=== PATIENT | female | born 1955 | race Caucasian/White ===

== ENCOUNTER 2022-11-08 06:58 | Inpatient (IN) ==
--- NOTE | 2022-10-29 14:12 | EKG ---
[facility] Test Date: 2022-10-29 Pat Name: Kathy Rider Department: [facility] Room: Gender: Female Bobbin Winder Tender: : 1955 Requested By: Domenico Mathew Order Number: [id number] Reading MD: Celia Méndez Measurements Intervals [place] Rate: 98 P: 81 RI: 173 QRS: 85 QRSD: 85 T: 75 QT: 341 QTc: 436 Interpretive Statements Sinus rhythm LEFT ATRIAL ABNORMALITY CONSIDER RIGHT ATRIAL ABNORMALITY Borderline right axis deviation Nonspecific ST and T wave changes Abnormal ECG Compared to 05/14/22, rate has increased Electronically Signed On 10-29-2022 14:12:28 PST by Celia Méndez /store/[email or web address]/[id number]
[2022-10-29 15:20] LABS: Basophils # (Auto) 0.03 K/mcL (0.00-0.30); Basophils % (Auto) 0.3 % (0.0-2.0); Eosinophils # (Auto) 0.04 K/mcL (0.00-0.70); Eosinophils % (Auto) 0.4 % (0.0-7.0); Hematocrit 40.4 % (34.1-44.9); Hemoglobin 12.4 g/dL (11.2-15.7); Lymphocytes # (Auto) 1.71 K/mcL (1.50-4.80); Lymphocytes % (Auto) 15.8 % (15.5-49.0); Mean Cell Volume 95.3 fL (80.0-100.0); Mean Corpuscular HGB Conc 30.7 g/dL (31.0-36.0); Monocytes # (Auto) 1.03 K/mcL (0.10-0.90); Monocytes % (Auto) 9.5 % (1.0-12.0); Neutrophils % (Auto) 73.6 % (38.0-78.0); Platelet Count 240 K/mcL (140-440); RBC 4.24 M/mcL (3.59-5.38); Red Cell Distribution Width 12.6 % (11.5-14.5); WBC 10.8 K/mcL (4.5-11.0)
[2022-10-29 15:51] LABS: Blood Urea Nitrogen 7 mg/dL (8-23); Calcium 9.7 mg/dL (8.6-10.4); Carbon Dioxide 38 mmol/L (22-30); Chloride 90 mmol/L (96-108); Glomerular Filtration Rate 77; Glucose 79 mg/dL (70-105)
[~2022-11-08 06:58] MED LIST: ceFAZolin 2 GM in DEXTROSE 5% IN WATER 50 ML IV SCH
[2022-11-08] MEDS ORDERED: LIDOCAINE 2% URO-JET 10 ML JEL.PF.APP UR ONE (08:00)
[2022-11-08] MEDS ORDERED: IOVERSOL 20 ML VIAL IJ ONE (08:00)
[2022-11-08] MEDS ORDERED: PROPOFOL 200 MG/20 ML VIAL IV ONE (08:33)
[2022-11-08] MEDS ORDERED: LIDOCAINE HCL/PF 100 MG/5 ML SYRINGE IV ONE (08:33)
[2022-11-08] MEDS ORDERED: MIDAZOLAM 2 MG/2 ML VIAL ONE (08:33)
--- NOTE | 2022-11-08 09:02 | Operative Note ---
Brief Operative Note Date of procedure: 11/08/22 Pre-op diagnosis: Right ureteral obstruction secondary to metastatic bladder c ancer Post-op diagnosis: same Procedure: Cystoscopy, right ureteral stent removal, right retrograde pyelogram, and right ureteral stent replacement. Grafts/Implants: Yes (6 Kittitian by 22 cm right ureteral stent with no string) Anesthesia: GLMA Findings: Right ureteral stent exchanged without difficulty. No evidence of hydronephrosis. Anesthesia advised that patient's lung function is extremely poor. Complications: none Surgeon: Nir Camacho Estimated blood loss (cc): 5 Specimens Removed/Pathology: none sent Condition: stable Disposition: PACU Operative Note Operative Note: After obtaining informed consent for the patient, she was brought to the operating room was placed upon on the operating table. General anesthesia was provided. She was repositioned in a dorsolithotomy position was prepped and draped in usual sterile fashion. Attention was directed to the urethral meatus where a 21 Kittitian cystoscope was passed per urethra into the bladder. The bladder is inspected and seen to be free of tumors and stones. A right neural stent was seen emanating from the right ureteral orifice that had a few calcifications on it. The right ureteral stent was grasped using a flexible grasper and was removed from the bladder and ureter intact under fluoroscopic guidance. A 5 Kittitian open-end ureteral catheter was then passed through the right ureteral orifice and a right retrograde pyelogram was performed showing no evidence of hydronephrosis. There was evidence of ureteral narrowing. The open ureteral catheter was removed and a 0.38 Kittitian sensor wire was passed through the right ureteral orifice and under fluoroscopic guidance into the right upper pole. A 6 Kittitian by 22 cm right ureteral stent with no string was passed over the wire and under fluoroscopic guidance into the right renal pelvis. The wire was removed leaving a curl in the right renal pelvis and a curl within the bladder. The bladder was irrigated and drained. The cystoscope was removed. Lidocaine jelly was placed in the urethra and the bladder. The patient was returned to the spine position. She was awakened returned to the recovery room in stable condition.
[2022-11-08] MEDS ORDERED: fentaNYL 100 MCG/2 ML VIAL IV PRN (09:03)
[2022-11-08] MEDS ORDERED: IPRATROPIUM/ALBUTEROL 3 ML AMPUL.NEB NEB PRN ×2 (09:03→13:51)
--- NOTE | 2022-11-08 09:48 | Urology Progress Note ---
SUBJECTIVE Subjective Patient information: Note initiated : 11/08/22 at 9:46 am Service Date, if different from initiated Date: [] Patient: Kathy Rider 66 y/o F admitted on for Cystoscopy with Right Retrograde Pyelograms & . Chief Complaint: [] Constitutional Vitals: Vital Signs Temp Pulse Resp BP Pulse Ox O2 Del Method O2 Flow Rate 98.0 F 91 H 23 H 161/85 98 Nasal Cannula 2.5 11/08/22 09:40 11/08/22 09:40 11/08/22 09:40 11/08/22 09:40 11/08/22 09:40 11/08/22 09:40 11/08/22 09:40 Period Temp Pulse Resp BP Sys/Matos Pulse Ox O2 Del Method O2 Flow Rate Last 24 Hr 97.7 F-98.2 F 91-101 14-30 141-167/74-136 98-100 Nasal Cannula-Simple Mask 2.5-6 Intake and Output 11/07/22 11/08/22 11/08/22 19:59 03:59 11:59 Intake Total 1000 Balance 1000 Weight 49.895 kg Patient Weight 11/09/22 03:59 Weight 49.895 kg Intake & Output: Intake & Output 11/07/22 11/08/22 11/08/22 19:59 03:59 11:59 Intake Total 1000 Balance 1000 Weight 49.895 kg Intake: IV - Manual Only 1000 Other: Urine Odor Normal A/P Assessment and plan (1) Hypoxemia: Status: Acute (2) Hypoventilation: Status: Acute (3) S/P ureteral stent placement: Status: Acute Plan Postoperatively the patient CO2 on blood gas was 102.5. I spoke with the hospitalist service who agrees to admit her for observation and possible BiPAP. They will then further discuss her condition with the family to decide upon further treatment options. A review of her prior records from her ER visit indicates was quite high during that visit. She was difficult to ventilate during the procedure we did. Postoperatively she remains somnolent. I have also discussed this with the patient's family. Time Spent With Patient Time: Total time spent is greater than 50% in coordination of care (as documented) at patient's floor/unit and/or counseling patient:
--- NOTE | 2022-11-08 13:50 | Internal Med History&Physical ---
HPI History of Present Illness Patient information: Note initiated : 11/08/22 at 1:39 pm Service Date, if different from initiated Date: [] Patient: Kathy Rider a 66 y/o F admitted on 11/08/22 for Cystoscopy with Right Retrograde Pyelograms & . Chief Complaint: [] History of present illness: Ms. Rider is a 66 year old F Who underwent right ureteral stent replacement today. Patient has a history of metastatic bladder cancer with urinary obstruction and receives regular replacement of her stent. She also has history of COPD on 3 L at home. Today after surgery she was found to have a pH of 7.25 with a CO2 of 102 and altered. Per her children who recently been in town visiting her because she felt like she was dying, they stated that she is had increased oxygen needs up to 4 L at home. And that she seems to been a little more short of breath. She is also been much more drowsy over that time. Patient has a chronic cough but not particular change. She has chronic shortness of breath. She complains of headaches. She has recently been looking into hospice and supposed to meet with them tomorrow. She does take prednisone chronically for her lungs. Vital signs show mild tachycardia and hypertension. Patient transferred to the ICU on BiPAP. Review of Systems: Pertinent positives as above. Denies /fever/chills/nausea/vomiting/chest or abdominal pain/diarrhea. Remaining 10 point review of system reviewed negative PHYSICAL EXAM: General: Drowsy, No acute Distress Eyes/N/T: EOMI, no scleral icterus, PERRL, Head/Neck: neck supple, full ROM, normocephalic atraumatic CV: RRR, No murmurs, normal s1/s2 Pulm: decreased BS and mild wheezing b/l, no rhonchi/rales, Abd: soft, nontender, +BS x4 Ext: no clubbing/cyanosis/edema, nontender Neuro: follow commands Quite drowsy but will respond to questions alert, moves all extremities, CN 2-12 grossly intact, sensations intact b/l upper/lower Psychiatric: Skin: warm/dry, normal color PFSH PFSH All Active Problems UTI (urinary tract infection) (Chronic) Acute exacerbation of chronic obstructive airways disease (Chronic) Nausea & vomiting (Chronic) Metabolic acidosis (Chronic) Acute renal failure (Chronic) Hypoglycemia (Chronic) Hyperkalemia (Chronic) Renal failure (Chronic) Hydronephrosis (Chronic) Malnutrition of moderate degree (Chronic) CRISTIANA (acute kidney injury) (Chronic) Hypertension (Chronic) Respiratory failure (Chronic) Encephalopathy (Chronic) COPD (chronic obstructive pulmonary disease) (Chronic) Hyperphosphatemia (Chronic) Acute respiratory failure with hypoxemia (Chronic) Right lower lobe pneumonia (Chronic) Acute encephalopathy (Chronic) Depression (Chronic) Hydronephrosis (Acute) OAB (overactive bladder) (Acute) Cancer of bladder wall (Acute) Bilateral ureteral obstruction (Acute) S/P ureteral stent placement (Acute) Ureteral obstruction, right (Chronic) Acquired solitary kidney (Chronic) Viral syndrome (Acute) Pulmonary scarring (Chronic) Shortness of breath (Chronic) Mediastinal adenopathy (Chronic) GERD (gastroesophageal reflux disease) (Chronic) RUE weakness (Acute) Hyponatremia (Acute) Cough (Acute) Hematuria (Acute) Hydronephrosis of right kidney (Acute) Fatigue (Acute) Hypoxemia (Acute) Hypoventilation (Acute) Right flank pain (Acute) Medical History Acute encephalopathy Acute exacerbation of chronic obstructive airways disease Acute renal failure Acute respiratory failure with hypoxemia CRISTIANA (acute kidney injury) COPD (chronic obstructive pulmonary disease) Depression Encephalopathy GERD (gastroesophageal reflux disease) Hydronephrosis Bilateral Hyperkalemia Hyperphosphatemia Hypertension Hypoglycemia Hypoventilation Hypoxemia Malnutrition of moderate degree Mediastinal adenopathy Metabolic acidosis Nausea & vomiting Pulmonary scarring Renal failure Respiratory failure Right lower lobe pneumonia Shortness of breath UTI (urinary tract infection) Viral syndrome Surgical History History of section 10/24/1988, 11/06/1978 History of colonoscopy (06/16/14) History of cystoscopy (11/02/21) Rt ureteral stent History of surgery (07/21/20) Port a cath placement History of surgical procedure (~12/23/19) Bilateral nephrostomy tube placement 12/23/2019 - Left nephroureteral stent History of ureter stent 11/02/21, 06/22/21, 12/01/20, 08/25/20, 04/28/20, 01/07/20 History of wisdom tooth extraction Family History Father , 86 Cardiac disorder Hypertensive disorder Disorder of macula of retina Peripheral vascular disease Stented coronary artery Mother , 85 Disorder of macula of retina Depressive disorder Cerebrovascular accident Other Cancer Heart attack Social History household members: spouse lives independently: Yes marital status: education level: college occupational status: retired occupation: Nurse pets and animals: Yes pets and animals: cat(s) sexually active: No other: 2 children physical activity: other smoking status: Current every day smoker tobacco type: cigarettes per day: 2 pack-years: 40 alcohol intake frequency: a few times a week substance use type: does not use seatbelt use: always working smoke detector in home: Yes carbon monox detector in home: Yes MEDS/ALLERGIES Home Medications and Allergies Home Medications Medication Instructions Recorded Confirmed Type aripiprazole 2 mg tablet 2 mg PO QHS 01/05/20 11/08/22 History gabapentin 100 mg capsule 100 mg PO BID 01/05/20 11/08/22 History lorazepam 1 mg tablet 1 mg PO Q6H PRN Anxiety 01/05/20 11/08/22 History trazodone 50 mg tablet 150 mg PO HS 01/06/20 11/08/22 History acetaminophen 500 mg tablet 1,000 mg PO Q8H PRN Pain 11/23/20 11/08/22 History meloxicam 7.5 mg tablet 7.5 mg PO QDAY 11/23/20 11/08/22 History polyethylene glycol 3350 17 gram 17 g PO QDAY PRN Constipation 06/15/21 11/08/22 History oral powder packet (ClearLax) tramadol 50 mg tablet 50 mg PO Q6H PRN Pain 03/20/22 11/08/22 History tamsulosin 0.4 mg capsule (Flomax) 0.4 mg PO QHS 07/05/22 11/08/22 History venlafaxine 150 mg 150 mg PO BID 07/05/22 11/08/22 History capsule,extended release 24 hr solifenacin 10 mg tablet 10 mg PO QDAY #30 tabs 07/26/22 11/08/22 Rx ipratropium 0.5 mg-albuterol 3 mg 3 ml inhalation QID shortness of 08/08/22 11/08/22 Rx (2.5 mg base)/3 mL nebulization breath #360 mL soln albuterol sulfate 90 mcg/actuation 2 puff inhalation Q4 10/29/22 11/08/22 History aerosol inhaler (Ventolin HFA) fluticasone fur. 100 mcg-umeclid 1 ea inhalation QDAY 10/29/22 11/08/22 History 62.5 mcg-vilant 25 mcg inhalat.powder (Trelegy Ellipta) oxycodone 5 mg tablet 5 mg PO Q8H PRN Pain 10/29/22 11/08/22 History prednisone 10 mg tablet 10 mg PO QAM 10/29/22 11/08/22 History cefdinir 300 mg capsule 300 mg PO BID #10 caps 11/05/22 11/08/22 Rx venlafaxine 75 mg tablet,extended 75 mg PO DAILY 11/08/22 11/08/22 History release 24 hr Allergies Allergy/AdvReac Type Severity Reaction Status Date / Time No Known Drug Allergies Allergy Verified 11/08/22 07:12 EXAM Constitutional Vitals: Temp Pulse Resp BP Pulse Ox O2 Del Method O2 Flow Rate 98.2 F 90 32 H 163/89 97 Nasal Cannula 2 11/08/22 12:01 11/08/22 12:42 11/08/22 12:42 11/08/22 12:01 11/08/22 12:42 11/08/22 12:16 11/08/22 11:16 DATA Data Completed and Pending Labs: Labs from last 24 hours 11/08/22 09:31 POC pH 7.26 L POC pCO2 102.5 H* POC pO2 85 POC HCO3 45.6 H POC Total CO2 49.0 H* POC ABG Base Excess 19.0 H ABG Lactic Acid < 0.3 L Hgb O2 Saturation 93.0 L A/P Narrative A/P Narrative: A: *Acute on chronic hypoxic/hypercapnic respiratory failure: 2/2 copd and anesthesia for surgery -on bipap *AECOPD (3L O2@home), advanced: on chronic prednisone *metabolic alkalosis, likely chronic as compensatory mechanism *Metastatic bladder cancer: Chronic right ureteral stent, replaced (2/16) *Hematuria: Chronic 2/2 above *HTN: *CKD II: *Depression and anxiety: *Chronic pain: *Tobacco abuse: P: -bipap, f/u ABG -Corticosteroids -abhi and prn nebs, pulmicort -IS/Acapella when able, RT -cxr -check labs -monitor uop/i&o -monitor BP, prn IV -hold ryan for now d/t sedation -pt/ot -CM for placement needs, hospice eval -Smoking cessation counseling >3 minutes -ppx: SCD / ppi Time Spent With Patient Time: Total time spent is greater than 50% in coordination of care (as documented) at patient's floor/unit and/or counseling patient: Critical Care Time: Yes Total Critical Care Time: 70
[2022-11-08] MEDS ORDERED: POTASSIUM CHLORIDE 40 MEQ in DEXTROSE 5% IN WATER 500 ML IV PRN (13:51)
[2022-11-08] MEDS ORDERED: methylPREDNISolone SOD SUCC 125 MG/2 ML VIAL IV ONE (13:51)
[2022-11-08] MEDS ORDERED: LABETALOL 5 MG/ML ML IV PRN (13:51)
[2022-11-08] MEDS ORDERED: ACETAMINOPHEN 325 MG TABLET PO PRN (13:51)
[2022-11-08] MEDS ORDERED: MAGNESIUM SULFATE 2 GM/50 ML BAG IV PRN (13:51)
[2022-11-08] MEDS ORDERED: HYDROcodone/APAP 5/325MG TABLET PO PRN (13:51)
[2022-11-08] MEDS ORDERED: SENNOSIDES 1 TABLET PO PRN (13:51)
[2022-11-08] MEDS ORDERED: ONDANSETRON 4 MG/2 ML VIAL IV PRN (13:51)
[2022-11-08] MEDS ORDERED: POTASSIUM CHLORIDE 20 MEQ TABLET PO PRN ×2 (13:51)
[2022-11-08] MEDS ORDERED: POLYETHYLENE GLYCOL 3350 17 GM PACKET PO PRN (13:51)
[2022-11-08] MEDS ORDERED: LORazepam 1 MG TABLET PO PRN (14:03)
[2022-11-08] MEDS: 0.9 % SODIUM CHLORIDE 10 ML SYRINGE IV SCH ×4 (14:12→21:26)
--- NOTE | 2022-11-08 14:25 | XRay Report ---
CLINICAL INFORMATION: Dyspnea COMPARISON: 11/05/2022 TECHNIQUE: Portable FINDINGS: The heart size, mediastinum and pulmonary vessels are unremarkable. Right IJ Port-A-Cath in stable satisfactory position. COPD with scattered fibrosis in both lungs is similar previous exam-no new pulmonary abnormalities. The right costophrenic angle is blunted by a tiny chronic effusion or scar-stable IMPRESSION: Stable COPD Interpreted and Authenticated by: Serg Loera 11/08/22
[2022-11-08] MEDS ORDERED: traMADol 50 MG TABLET PO PRN (14:31)
[2022-11-08] MEDS ORDERED: LORazepam 2 MG/ML VIAL IV PRN (15:59)
[2022-11-08] MEDS ORDERED: morphine 2 MG/ML VIAL IV PRN (15:59)
[2022-11-08 16:20] LABS: Basophils # (Auto) 0.03 K/mcL (0.00-0.30); Basophils % (Auto) 0.4 % (0.0-2.0); Eosinophils # (Auto) 0.02 K/mcL (0.00-0.70); Eosinophils % (Auto) 0.3 % (0.0-7.0); Hematocrit 41.8 % (34.1-44.9); Hemoglobin 11.9 g/dL (11.2-15.7); Lymphocytes # (Auto) 1.69 K/mcL (1.50-4.80); Lymphocytes % (Auto) 23.8 % (15.5-49.0); Mean Cell Volume 100.2 fL (80.0-100.0); Mean Corpuscular HGB Conc 28.5 g/dL (31.0-36.0); Mean Platelet Volume 9.9 fL (8.8-12.5); Monocytes # (Auto) 0.78 K/mcL (0.10-0.90); Neutrophils % (Auto) 64.2 % (38.0-78.0); Platelet Count 182 K/mcL (140-440); RBC 4.17 M/mcL (3.59-5.38); Red Cell Distribution Width 12.7 % (11.5-14.5); WBC 7.1 K/mcL (4.5-11.0)
[2022-11-08 18:54] LABS: ALT/SGPT 13 U/L (<40); AST/SGOT 16 U/L (<32); Albumin 3.7 gm/dL (3.2-5.2); Albumin/Globulin Ratio 1.4 (1.0-2.3); Alkaline Phosphatase 68 U/L (39-117); Bilirubin,Direct < 0.2 mg/dL (0-0.3); Bilirubin,Total 0.2 mg/dL (0.1-1.0); Blood Urea Nitrogen 10 mg/dL (8-23); Calcium 9.1 mg/dL (8.6-10.4); Carbon Dioxide 45 mmol/L (22-30); Chloride 91 mmol/L (96-108); Globulin 2.6 gm/dL (2.2-3.7); Glomerular Filtration Rate 90; Glucose 224 mg/dL (70-105); Lactate Dehydrogenase 157 U/L (135-225); Phosphorous 2.2 mg/dL (2.5-4.5); Triglycerides 91 mg/dL (<150); Uric Acid 3.2 mg/dL (2.5-8.0)
[2022-11-08] MEDS: IPRATROPIUM/ALBUTEROL 3 ML AMPUL.NEB NEB SCH (19:04)
[2022-11-08] MEDS ORDERED: NICOTINE POLACRILEX 2 MG GUM CHEW/PARK PRN (19:04)
[2022-11-08] MEDS: BUDESONIDE 0.5 MG/2 ML AMPUL.NEB NEB SCH (19:05)
[2022-11-08] MEDS ORDERED: acetaZOLAMIDE SOD 500 MG VIAL IV ONE (19:08)
[2022-11-08] MEDS ORDERED: traZODone HCL 50 MG TABLET PO SCH (21:00)
[2022-11-08] MEDS ORDERED: TAMSULOSIN 0.4 MG CAPSULE PO SCH (21:00)
[2022-11-08] MEDS ORDERED: ARIPIPRAZOLE 5 MG TABLET PO SCH (21:00)
[2022-11-08] MEDS: DOCUSATE SODIUM 100 MG CAPSULE PO SCH (21:24)
[2022-11-08] MEDS: methylPREDNISolone SOD SUCC 40 MG/ML VIAL IV SCH (21:25)
[2022-11-09] MEDS: IPRATROPIUM/ALBUTEROL 3 ML AMPUL.NEB NEB SCH ×3 (01:39→11:40)
--- NOTE | 2022-11-09 04:55 | XRay Report ---
CLINICAL INFORMATION: Right retrograde pyelogram COMPARISON: None. FINDINGS: Right retrograde pyelogram was performed following by successful stent placement. Total fluoroscopy time 0.3 minutes. IMPRESSION: Successful placement right ureteral stent. Total fluoroscopy time 0.3 minutes. Interpreted and Authenticated by: Serg Loera 11/09/22
[2022-11-09] MEDS: methylPREDNISolone SOD SUCC 40 MG/ML VIAL IV SCH (06:05)
[2022-11-09] MEDS: 0.9 % SODIUM CHLORIDE 10 ML SYRINGE IV SCH ×2 (06:06→13:56)
[2022-11-09 06:45] LABS: ALT/SGPT 11 U/L (<40); AST/SGOT 12 U/L (<32); Albumin 3.4 gm/dL (3.2-5.2); Albumin/Globulin Ratio 1.4 (1.0-2.3); Alkaline Phosphatase 62 U/L (39-117); Bilirubin,Direct < 0.2 mg/dL (0-0.3); Bilirubin,Total 0.2 mg/dL (0.1-1.0); Blood Urea Nitrogen 14 mg/dL (8-23); Calcium 9.3 mg/dL (8.6-10.4); Carbon Dioxide 34 mmol/L (22-30); Chloride 95 mmol/L (96-108); Globulin 2.5 gm/dL (2.2-3.7); Glomerular Filtration Rate 77; Glucose 99 mg/dL (70-105); Lactate Dehydrogenase 160 U/L (135-225); Phosphorous 3.8 mg/dL (2.5-4.5); Triglycerides 76 mg/dL (<150); Uric Acid 3.3 mg/dL (2.5-8.0)
[2022-11-09] MEDS ORDERED: PANTOPRAZOLE 40 MG TABLET PO SCH (07:30)
[2022-11-09] MEDS: BUDESONIDE 0.5 MG/2 ML AMPUL.NEB NEB SCH (07:31)
--- NOTE | 2022-11-09 08:00 | Internal Med Progress Note ---
SUBJECTIVE Subjective Patient information: Note initiated : 11/09/22 at 7:58 am Service Date, if different from initiated Date: [] Patient: Kathy Rider a 66 y/o F admitted on 11/08/22 for Cystoscopy with Right Retrograde Pyelograms & . Chief Complaint: [] Interval history: History of present illness: Ms. Rider is a 66 year old F Who underwent right ureteral stent replacement today. Patient has a history of metastatic bladder cancer with urinary obstruction and receives regular replacement of her stent. She also has history of COPD on 3 L at home. Today after surgery she was found to have a pH of 7.25 with a CO2 of 102 and altered. Per her children who recently been in town visiting her because she felt like she was dying, they stated that she is had increased oxygen needs up to 4 L at home. And that she seems to been a little more short of breath. She is also been much more drowsy over that time. Patient has a chronic cough but not particular change. She has chronic shortness of breath. She complains of headaches. She has recently been looking into hospice and supposed to meet with them tomorrow. She does take prednisone chronically for her lungs. Vital signs show mild tachycardia and hypertension. Patient transferred to the ICU on BiPAP. 11/09 Patient on BiPAP overnight. Currently on nasal cannula alert and awake, family at bedside. Denies shortness of breath at rest. No coughing currently. Bicarb improved after Diamox last night. Review of Systems: denies headache/fever/chills/nausea/vomiting/chest or abdominal pain/cough/dyspnea/diarrhea. Otherwise see above. PHYSICAL EXAM: General: Awake, No acute Distress Eyes/N/T: EOMI, no scleral icterus, Head/Neck: neck supple, full ROM, CV: RRR, No murmurs, normal s1/s2 Pulm: decreased BS but better, no wheezing today, no rhonchi/rales, Abd: soft, nontender, +BS x4 Ext: no clubbing/cyanosis/edema, nontender Neuro: Alert and awake, moves all extremities, sensations intact b/l upper/lower Psychiatric: Skin: warm/dry, normal color Constitutional Vitals: Vital Signs Temp Pulse Resp BP Pulse Ox O2 Del Method O2 Flow Rate 98.4 F 95 H 34 H 109/75 94 BiPAP 4 11/09/22 04:00 11/09/22 07:36 11/09/22 07:36 11/09/22 04:00 11/09/22 07:36 11/09/22 07:36 11/08/22 15:15 Period Temp Pulse Resp BP Sys/Matos Pulse Ox O2 Del Method O2 Flow Rate Last 24 Hr 97.7 F-98.4 F 66-101 14-34 108-172/64-136 92-100 BiPAP-Simple Mask 2-6 Intake and Output 11/08/22 11/09/22 11/09/22 19:59 03:59 11:59 Intake Total 300 Output Total 850 425 Balance -850 -125 Weight 51.392 kg Intake & Output: Intake & Output 11/08/22 11/09/22 11/09/22 19:59 03:59 11:59 Intake Total 300 Output Total 850 425 Balance -850 -125 Weight 51.392 kg Intake: Oral 300 Output: Void Amount 850 425 Other: Urine Appearance Clear Urine Color Tea Colored Dark Yellow OBJ DATA Labs 11/08/22 14:19 11/09/22 05:18 Labs: Abnormal Lab Results 11/09/22 11/08/22 11/08/22 05:18 18:01 15:55 MCV MCHC POC pH 7.32 L POC pCO2 89.6 H* POC HCO3 45.6 H POC Total CO2 48.0 H* POC ABG Base Excess 19.0 H ABG Lactic Acid Hgb O2 Saturation Chloride 95 L 91 L Carbon Dioxide 34 H 45 H* Anion Gap 6.0 L 1.0 L Glucose 224 H Phosphorus 2.2 L 11/08/22 11/08/22 14:19 09:31 MCV 100.2 H MCHC 28.5 L POC pH 7.26 L POC pCO2 102.5 H* POC HCO3 45.6 H POC Total CO2 49.0 H* POC ABG Base Excess 19.0 H ABG Lactic Acid < 0.3 L Hgb O2 Saturation 93.0 L Chloride Carbon Dioxide Anion Gap Glucose Phosphorus Meds: Medications Acetaminophen (Acetaminophen 325 Mg Tablet) 650 mg PO Q6HP PRN; Protocol PRN Reason: Per Pain Protocol/Fever > 101 Last Admin: 11/08/22 14:12 Dose: 650 mg Hydrocodone Bitart/Acetaminophen (Hydrocodone/Apap 5/325mg Tablet) 1 tab PO Q4HP PRN PRN Reason: PAIN LEVEL 3-6 Last Admin: 11/08/22 22:13 Dose: 1 tab Albuterol/Ipratropium (Ipratropium/Albuterol 3 Ml Ampul.Neb) 3 ml NEB Q6HRT [facility] Last Admin: 11/09/22 07:31 Dose: 3 ml Albuterol/Ipratropium (Ipratropium/Albuterol 3 Ml Ampul.Neb) 3 ml NEB Q4HP PRN PRN Reason: Shortness Of Breath Budesonide (Budesonide 0.5 Mg/2 Ml Ampul.Neb) 0.5 mg NEB Q12 [facility] Last Admin: 11/09/22 07:31 Dose: 0.5 mg Docusate Sodium (Docusate Sodium 100 Mg Capsule) 100 mg PO BID [facility] Last Admin: 11/08/22 21:24 Dose: 100 mg Heparin Sodium (Porcine) (Heparin Flush 10 Units/Ml 5 Ml Syringe) 5 ml IV Q12 [facility] Last Admin: 11/08/22 21:24 Dose: 5 ml Potassium Chloride 40 meq/ (Dextrose) 520 mls @ 130 mls/hr IV UD PRN PRN Reason: Potassium < 3 Magnesium Sulfate (Magnesium Sulfate) 2 gm in 50 mls @ 50 mls/hr IV UD PRN PRN Reason: Magnesium </= 1.6 Labetalol HCl (Labetalol 5 Mg/Ml Ml) 0 mg IV Q2HP PRN PRN Reason: Hypertension Lorazepam (Lorazepam 1 Mg Tablet) 1 mg PO Q6HP PRN PRN Reason: ANXIETY/SEDATION Last Admin: 11/08/22 15:50 Dose: 1 mg Lorazepam (Lorazepam 2 Mg/Ml Vial) 0.5 mg IV Q4-6HP PRN PRN Reason: ANXIETY/SEDATION Last Admin: 11/08/22 22:01 Dose: 0.5 mg Methylprednisolone Sodium Succinate (Methylprednisolone Sod Succ 40 Mg/Ml Vial) 40 mg IV Q8 [facility] Last Admin: 11/09/22 06:05 Dose: 40 mg Morphine Sulfate (Morphine 2 Mg/Ml Vial) 1 - 4 mg IV Q3HP PRN; Protocol PRN Reason: Per Pain Protocol Nicotine Polacrilex (Nicotine Polacrilex 2 Mg Gum) 2 mg CHEW/PARK Q4HP PRN PRN Reason: Nicotine Cravings Ondansetron HCl (Ondansetron 4 Mg/2 Ml Vial) 4 mg IV Q4HP PRN PRN Reason: Nausea And Vomiting Pantoprazole Sodium (Pantoprazole 40 Mg Tablet) 40 mg PO QAMAC ABHI Solifenacin 10 Mg (Tablet) 1 dose PO DAILY [facility] Polyethylene Glycol (Polyethylene Glycol 3350 17 Gm Packet) 17 gm PO DAILYP PRN PRN Reason: Constipation Potassium Chloride (Potassium Chloride 20 Meq Tablet) 40 meq PO UD PRN PRN Reason: Potssium is 3-3.5 Potassium Chloride (Potassium Chloride 20 Meq Tablet) 40 meq PO UD PRN PRN Reason: Potassium < 3 Senna (Sennosides 1 Tablet) 2 tab PO DAILYP PRN PRN Reason: Constipation Sodium Chloride (0.9 % Sodium Chloride 10 Ml Syringe) 10 ml IV Q8 [facility] Last Admin: 11/09/22 06:06 Dose: 10 ml Tamsulosin HCl (Tamsulosin 0.4 Mg Capsule) 0.4 mg PO QHS [facility] Last Admin: 11/08/22 21:24 Dose: 0.4 mg Tramadol HCl (Tramadol 50 Mg Tablet) 50 mg PO Q6HP PRN PRN Reason: Pain Trazodone HCl (Trazodone Hcl 50 Mg Tablet) 50 mg PO HS [facility] Last Admin: 11/08/22 21:24 Dose: 50 mg Venlafaxine HCl (Venlafaxine 150 Mg Cap.Xl.24h) 150 mg PO HS [facility] Venlafaxine HCl (Venlafaxine 75 Mg Cap.Xl.24h) 225 mg PO DAILY ABHI A/P Narrative A/P Narrative: A: *Acute on chronic hypoxic/hypercapnic respiratory failure: 2/2 copd and anesthesia for surgery, r/o pe -cxr no acute -on bipap o/n, currently on 4L NC *AECOPD (3L O2@home), advanced: on chronic prednisone *metabolic alkalosis, likely chronic as compensatory mechanism -improved s/p diamox *Metastatic bladder cancer: Chronic right ureteral stent, replaced (11/08) *no hematuria: has had hematuria in past *HTN: *CKD II: *Depression and anxiety: *Chronic pain: *Tobacco abuse: P: -bipap, f/u ABG -Corticosteroids (wean) -check dimer and if elevated cta -abhi and prn nebs, pulmicort -IS/Acapella when able, RT -f/u labs -monitor uop/i&o -monitor BP, prn IV -hold ryan for now d/t sedation -pt/ot -CM for placement needs, hospice eval -Smoking cessation counseling -ppx: SCD / ppi Time Spent With Patient Time: Total time spent is greater than 50% in coordination of care (as documented) at patient's floor/unit and/or counseling patient: Subsequent: Total time with patient: 35 - 49 minutes
--- NOTE | 2022-11-09 08:46 | Urology Progress Note ---
SUBJECTIVE Subjective Patient information: Note initiated : 11/09/22 at 8:42 am Service Date, if different from initiated Date: [] Patient: Kathy Rider 66 y/o F admitted on 11/08/22 for Cystoscopy with Right Retrograde Pyelograms & . Chief Complaint: [Respiratory failure] Principal diagnosis: Respiratory failure and metastatic bladder cancer Interval history: Kathy is postoperative day #1 status post exchange for right ureteral stent. She has not been feeling well and this appears to be secondary to respiratory failure. There was difficulty ventilating her in the operating room yesterday and decision was made to admit her to the hospitalist service for further evaluation and treatment. She was kept on BiPAP overnight and currently appears to be doing much better. Her family is currently at her bedside. Constitutional Vitals: Vital Signs Temp Pulse Resp BP Pulse Ox O2 Del Method O2 Flow Rate 98.4 F 99 H 23 H 152/90 94 BiPAP 4 11/09/22 04:00 11/09/22 08:01 11/09/22 08:01 11/09/22 08:01 11/09/22 08:01 11/09/22 07:36 11/08/22 15:15 Period Temp Pulse Resp BP Sys/Matos Pulse Ox O2 Del Method O2 Flow Rate Last 24 Hr 97.7 F-98.4 F 66-102 14-34 108-172/64-136 92-100 BiPAP-Simple Mask 2-6 Intake and Output 11/08/22 11/09/22 11/09/22 19:59 03:59 11:59 Intake Total 300 Output Total 850 425 Balance -850 -125 Weight 51.392 kg Intake & Output: Intake & Output 11/08/22 11/09/22 11/09/22 19:59 03:59 11:59 Intake Total 300 Output Total 850 425 Balance -850 -125 Weight 51.392 kg Intake: Oral 300 Output: Void Amount 850 425 Other: Urine Appearance Clear Urine Color Tea Colored Dark Yellow General appearance: average body habitus, cooperative and no acute distress A/P Assessment and plan (1) Fatigue: Status: Acute (2) Hypoxemia: Status: Acute (3) Hypoventilation: Status: Acute (4) Shortness of breath: Status: Chronic (5) Metabolic acidosis: Status: Chronic (6) Malignant neoplasm metastatic from bladder: Status: Acute (7) Ureteral obstruction, right: Status: Chronic (8) Solitary right kidney: Status: Acute (9) Acquired solitary kidney: Status: Chronic Plan Kathy is a 66-year-old woman who is postoperative day #1 status postexchange of her right ureteral stent. She has a history of metastatic bladder cancer that currently appears to be in remission. She is no longer having any bladder pain or discomfort. She was admitted due to respiratory failure. She currently appears to be improving. She is admitted to the hospitalist service. Further treatment and/or disposition will be per the hospitalist service. She will follow-up with me in my office within a few weeks of discharge. Time Spent With Patient Time: Total time spent is greater than 50% in coordination of care (as documented) at patient's floor/unit and/or counseling patient:
[2022-11-09] MEDS ORDERED: Solifenacin 10 mg tablet PO SCH (09:00)
[2022-11-09] MEDS ORDERED: VENLAFAXINE 75 MG CAP.XL.24H PO SCH (09:00)
[2022-11-09] MEDS: DOCUSATE SODIUM 100 MG CAPSULE PO SCH (09:58)
--- NOTE | 2022-11-09 10:47 | Discharge Summary ---
Discharge Provider Provider IMPORTANT FOLLOW-UP INFORMATION FOR PCP: Patient information: Note initiated : 11/09/22 at 10:45 am Service Date, if different from initiated Date: [] Patient: Kathy Rider a 66 y/o F admitted on 11/08/22 for Cystoscopy with Right Retrograde Pyelograms & . Chief Complaint: [] Date of admission: 11/08/22 12:30 Discharge date: 11/09/22 Primary care physician: Rena Petty COURSE Hospital Course Hospital course: History of present illness: Ms. Rider is a 66 year old F Who underwent right ureteral stent replacement today. Patient has a history of metastatic bladder cancer with urinary obstruction and receives regular replacement of her stent. She also has history of COPD on 3 L at home. Today after surgery she was found to have a pH of 7.25 with a CO2 of 102 and altered. Per her children who recently been in town visiting her because she felt like she was dying, they stated that she is had increased oxygen needs up to 4 L at home. And that she seems to been a little more short of breath. She is also been much more drowsy over that time. Patient has a chronic cough but not particular change. She has chronic shortness of breath. She complains of headaches. She has recently been looking into hospice and supposed to meet with them tomorrow. She does take prednisone chronically for her lungs. Vital signs show mild tachycardia and hypertension. Patient transferred to the ICU on BiPAP. 11/09 Patient on BiPAP overnight. Currently on nasal cannula alert and awake, family at bedside. Denies shortness of breath at rest. No coughing currently. Bicarb improved after Diamox last night. CTA done to rule out PE or other intra thoracic pathology but negative for PE and no infiltrate. Patient to go home with home health and to follow-up with hospice. A: *Acute on chronic hypoxic/hypercapnic respiratory failure: 2/2 copd and anesthesia for surgery, r/o pe -cxr no acute, CTA no pe or infiltrate just moderate emphysema *AECOPD (3L O2@home), advanced: on chronic prednisone *metabolic alkalosis, likely chronic as compensatory mechanism -improved s/p diamox *Metastatic bladder cancer: Chronic right ureteral stent, replaced (11/08) *no hematuria: has had hematuria in past *HTN: *CKD II: *Depression and anxiety: *Chronic pain: *Tobacco abuse: P: -steroid taper -f/u with Dr. Camacho and PCP -f/u with Hospice Discharge diagnosis: Acute on chronic hypoxic hypercapnic respiratory failure Secondary discharge diagnosis: Acute exacerbation COPD metabolic alkalosis metastatic bladder cancer hypertension chronic needs depression anxiety chronic pain tobacco abuse Time Spent with Patient Time attestation: Total time spent providing and/or coordinating discharge services: Time spent: Greater than 30 minutes EXAM Constitutional Vitals: Temp Pulse Resp BP Pulse Ox O2 Del Method O2 Flow Rate 98.4 F 86 34 H 111/60 93 BiPAP 4 11/09/22 04:00 11/09/22 10:01 11/09/22 10:01 11/09/22 10:01 11/09/22 10:01 11/09/22 07:36 11/08/22 15:15 Discharge Data Data Completed and Pending Labs on day of discharge: Labs from last 24 hours 11/09/22 11/09/22 11/09/22 10:25 08:57 05:18 WBC RBC Hgb Hct MCV MCH MCHC RDW Plt Count MPV Immature Gran % (Auto) Neut % (Auto) Lymph % (Auto) [place] % (Auto) Eos % (Auto) Baso % (Auto) Lymph # (Auto) [place] # (Auto) Eos # (Auto) Baso # (Auto) Immature Gran # Absolute Neutrophils D-Dimer Pending POC pH POC pCO2 POC pO2 POC HCO3 POC Total CO2 POC ABG Base Excess ABG Lactic Acid POC VBG pH 7.31 L POC VBG pCO2 at Temp 71.9 H* POC VBG pO2 22 L POC VBG HCO3 36.3 H POC VBG Total CO2 38.0 H POC Venous O2 Sat 31.0 L POC VBG Base Excess 10.0 H* VBG Lactic Acid 2.1 H Hgb O2 Saturation Sodium 135 Potassium 3.7 Chloride 95 L Carbon Dioxide 34 H Anion Gap 6.0 L BUN 14 Creatinine 0.8 GFR Calculation 77 Glucose 99 Uric Acid 3.3 Calcium 9.3 Phosphorus 3.8 Magnesium 1.7 Total Bilirubin 0.2 Direct Bilirubin < 0.2 GGT 12 AST 12 ALT 11 Alkaline Phosphatase 62 Lactate Dehydrogenase 160 Total Protein 5.9 Albumin 3.4 Globulin 2.5 Albumin/Globulin Ratio 1.4 Triglycerides 76 11/08/22 11/08/22 11/08/22 18:01 15:55 14:19 WBC RBC Hgb Hct MCV MCH MCHC RDW Plt Count MPV Immature Gran % (Auto) Neut % (Auto) Lymph % (Auto) [place] % (Auto) Eos % (Auto) Baso % (Auto) Lymph # (Auto) [place] # (Auto) Eos # (Auto) Baso # (Auto) Immature Gran # Absolute Neutrophils D-Dimer POC pH 7.32 L POC pCO2 89.6 H* POC pO2 91 POC HCO3 45.6 H POC Total CO2 48.0 H* POC ABG Base Excess 19.0 H ABG Lactic Acid 0.5 POC VBG pH POC VBG pCO2 at Temp POC VBG pO2 POC VBG HCO3 POC VBG Total CO2 POC Venous O2 Sat POC VBG Base Excess VBG Lactic Acid Hgb O2 Saturation 95.0 Sodium 137 TNP Potassium 4.1 TNP Chloride 91 L TNP Carbon Dioxide 45 H* TNP Anion Gap 1.0 L TNP BUN 10 TNP Creatinine 0.7 TNP GFR Calculation 90 TNP Glucose 224 H TNP Uric Acid 3.2 TNP Calcium 9.1 TNP Phosphorus 2.2 L TNP Magnesium 1.7 TNP Total Bilirubin 0.2 TNP Direct Bilirubin < 0.2 Pending GGT 9 TNP AST 16 TNP ALT 13 TNP Alkaline Phosphatase 68 TNP Lactate Dehydrogenase 157 TNP Total Protein 6.3 TNP Albumin 3.7 TNP Globulin 2.6 TNP Albumin/Globulin Ratio 1.4 TNP Triglycerides 91 TNP 11/08/22 14:19 WBC 7.1 RBC 4.17 Hgb 11.9 Hct 41.8 MCV 100.2 H MCH 28.5 MCHC 28.5 L RDW 12.7 Plt Count 182 MPV 9.9 Immature Gran % (Auto) 0.3 Neut % (Auto) 64.2 Lymph % (Auto) 23.8 [place] % (Auto) 11.0 Eos % (Auto) 0.3 Baso % (Auto) 0.4 Lymph # (Auto) 1.69 [place] # (Auto) 0.78 Eos # (Auto) 0.02 Baso # (Auto) 0.03 Immature Gran # 0.02 Absolute Neutrophils 4.57 D-Dimer POC pH POC pCO2 POC pO2 POC HCO3 POC Total CO2 POC ABG Base Excess ABG Lactic Acid POC VBG pH POC VBG pCO2 at Temp POC VBG pO2 POC VBG HCO3 POC VBG Total CO2 POC Venous O2 Sat POC VBG Base Excess VBG Lactic Acid Hgb O2 Saturation Sodium Potassium Chloride Carbon Dioxide Anion Gap BUN Creatinine GFR Calculation Glucose Uric Acid Calcium Phosphorus Magnesium Total Bilirubin Direct Bilirubin GGT AST ALT Alkaline Phosphatase Lactate Dehydrogenase Total Protein Albumin Globulin Albumin/Globulin Ratio Triglycerides Discharge Plan Patient/Caregiver Discharge Instructions Activity: increase activity as tolerated Diet: Regular Diet Activity Restrictions/Additional Instructions: Follow-up with PCP. Follow-up with hospice outpatient. Prescriptions: New prednisone 10 mg tablet 40 mg PO QDAY Qty: 1 0RF Rx Instructions: Take 40mg once daily for 2 days then 20mg daily for 2 days then 10mg daily x2 days then 5mg x2 days and stop Continued solifenacin 10 mg tablet 10 mg PO QDAY Qty: 30 6RF gabapentin 100 mg capsule 100 mg PO BID aripiprazole 2 mg tablet 2 mg PO QHS lorazepam 1 mg tablet 1 mg PO Q6H PRN (Reason: Anxiety) tramadol 50 mg tablet 50 mg PO Q6H PRN (Reason: Pain) ipratropium-albuterol 0.5 mg-3 mg(2.5 mg base)/3 mL solution for nebulization 3 ml inhalation QID Qty: 360 5RF Rx Instructions: Inhale 1 vial with nebulizer 4 times a day acetaminophen 500 mg Tablet 1,000 mg PO Q8H PRN (Reason: Pain) meloxicam 7.5 mg Tablet 7.5 mg PO QDAY polyethylene glycol 3350 [ClearLax] 17 gram Powder In Packet 17 g PO QDAY PRN (Reason: Constipation) venlafaxine 150 mg Capsule,Extended Release 24hr 150 mg PO BID Rx Instructions: COMBINED WITH THE 75 MG tamsulosin [Flomax] 0.4 mg capsule 0.4 mg PO QHS prednisone 10 mg tablet 10 mg PO QAM albuterol sulfate [Ventolin HFA] 90 mcg/actuation HFA aerosol inhaler 2 puff INHALATION Q4 Patient Comments: [NO ORIGINAL SIG] oxycodone 5 mg Tablet 5 mg PO Q8H PRN (Reason: Pain) Trelegy Ellipta 100-62.5-25 mcg blister with device 1 ea INHALATION QDAY venlafaxine 75 mg tablet extended release 24hr 75 mg PO DAILY Patient Comments: WITH 150 MG IN MORNING ONLY cefdinir 300 mg capsule 300 mg PO BID Qty: 10 0RF Rx Instructions: BID for 5 days. start on 11/05/22 trazodone 50 mg tablet 150 mg PO HS Follow Up Plan Follow up with: Nir Camacho MD [Physician] - 01/01/23 8:45 am Patient Disposition: Home Health Service Prognosis: Undetermined Overall status at discharge: patient is progressing back to baseline Discharge Orders: Discharge Order (Routine); Ordered 11/09/22 Ordered By: Carl Herron
[2022-11-09] MEDS ORDERED: IOPAMIDOL 100 ML BOTTLE IV ONE (12:42)
--- NOTE | 2022-11-09 13:19 | Cat Scan Report ---
CLINICAL INFORMATION: Hypoxia and tachycardia COMPARISON: Chest CTs 04/30/2006 and most recently 12/08/2021 TECHNIQUE: ml of Isovue-370 were injected intravenously. Using SmartPrep to maximize pulmonary artery opacification, .625mm helical slices were obtained from the lung apices through the lung bases. Following reconstruction, 2.5 mm sagittal, coronal, and axial reformations were processed. The exam was reviewed at mediastinal, lung, and bone windows. The exam was performed using radiation dose optimization techniques including, but not limited to, automated exposure control, adjustment of the mA and/or kV according to patient size and use of iterative reconstruction technique. FINDINGS: Pulmonary parenchymal windows show moderate centrilobular emphysema features chronic bronchitis with elevated lung volumes and wall thickening/dilatation of bronchi. There are multiple bullae, predominantly within the upper lobes, but also scattered within both lower and middle lobes. Bandlike regions of focal pleural parenchymal fibrosis are seen in the right middle and lower lobes with focal fibrosis along the superior right major fissure with associated dystrophic calcification. These are all stable. There are no infiltrates or new pulmonary abnormalities. No nodules.. Pleural spaces are unremarkable-no effusions. Mediastinal windows show the heart is grossly normal in size and configuration. The pulmonary arteries are normal diameter and well-opacified without evidence of embolus. Thoracic aorta is also normal diameter and well-opacified. There is no adenopathy in the mediastinal, hilar or axillary regions. Esophagus is grossly normal. The thyroid is unremarkable. Bones and soft tissues the chest wall are normal. Images show severe atrophy left kidney with compensatory hypertrophy of the right kidney. It is incompletely imaged. Splenic granulomas noted. IMPRESSION: 1. No evidence of pulmonary embolus or other acute cardiopulmonary process. 2. Moderate centrilobular emphysema. 3. Severe atrophy left kidney with compensatory hypertrophy of the right kidney. Interpreted and Authenticated by: Serg Loera 11/09/22
[2022-11-09] MEDS ORDERED: VENLAFAXINE 150 MG CAP.XL.24H PO SCH (21:00)
[2022-11-09] MEDS ORDERED: methylPREDNISolone SOD SUCC 40 MG/ML VIAL IV SCH (21:00)
== END 2022-11-09 15:15 | disposition home health service (06) | DRG 189 ==
LOC: SUR 06:58 → ICU 12:30
PROVIDERS: ADMIT Internal Medicine; ATTEND Internal Medicine